=== PATIENT | male | born 1965 | race Caucasian/White ===

== ENCOUNTER 2025-01-13 14:24 | Inpatient (IN) | payer BC, SELFPAY ==
--- NOTE | ~2025-01-13 | CT_ITS ---
CLINICAL HISTORY: epigastric pain CT abdomen and pelvis with contrast Comparison: None provided Findings: LIMITED CHEST: Lung bases are clear. LIVER: No focal liver lesion. BILIARY: Cholecystectomy. PANCREAS: There is moderate inflammatory stranding along the pancreatic head. No fluid collection. Normal parenchymal enhancement. SPLEEN: No splenomegaly. KIDNEYS: No hydronephrosis or radiopaque stone. ADRENALS: No nodule. VASCULAR: No aneurysm. RETROPERITONEUM: No lymphadenopathy or mass. BOWEL/MESENTERY: No evidence of obstruction. No free fluid or air. ABDOMINAL WALL: No mass or significant abnormality. URINARY BLADDER: No focal wall thickening. PELVIC NODES: No pelvic lymphadenopathy. PELVIC ORGANS: Normal for age. BONES: No acute fracture. Degenerative changes of the spine. OTHER: Negative. IMPRESSION: Acute pancreatitis. No abscess or fluid collection. This document has been electronically signed by: Tessa Levine MD on 01/13/2025 18:49:53
--- NOTE | ~2025-01-13 | MR_ITS ---
CLINICAL HISTORY: Pancreatitis-R O CBD stone, pancreas divisum MR abdomen without contrast, MRCP Comparison: CT/SR - CT ABDOMEN PELVIS W IV CON - 01/13/25 18:00 EST Findings: No signal abnormality in the lung bases. Status post cholecystectomy. No intrahepatic or extrahepatic biliary ductal dilatation. The common bile duct measures up to 5 mm. No filling defect to indicate choledocholithiasis. The main pancreatic duct measures up to 2.6 mm. No pancreatic divisum. There are multiple subcentimeter cysts within the pancreas, the largest measures up to 5 mm. There are also multiple dilated side branches. Interval resolution of the previously seen peripancreatic stranding. No peripancreatic fluid collection. Right renal parapelvic cysts measuring 7 mm The other solid organs are unremarkable. No bowel wall thickening or dilation. No aneurysm. No lymphadenopathy. No ascites. Multilevel lumbar endplate signal abnormalities, degenerative. Low signal lesion in the T12 vertebra on the T2 weighted images which is minimally hyperintense on the fat saturated images (series 3 and 4, image 37) and does not lose signal on the out of phase images (series 9 and 10, image 44) without definitive lesion seen on the recent CT. Impression: Resolution of the previously seen acute pancreatitis. No choledocholithiasis or pancreas divisum. Multiple subcentimeter cysts and dilated side branches. One year follow up is recommended. Indeterminate lesion within T12 can be further characterized with a bone scan or dedicated MR of the spine with and without contrast. This document has been electronically signed by: Leah Watson MD on 01/15/2025 18:39:23
[2025-01-13 14:29] VITALS: BP 129/61; PULSE 77; RESP 16; TEMP 37.1; O2SAT 95; BMI 35.1
--- NOTE | 2025-01-13 14:35 | ED.ABDPAIN ---
HPI - Abdominal Pain General Chief Complaint: Abdominal Pain Stated Complaint: abd pain Time Seen by Provider: 01/13/25 16:35 History of Present Illness HPI narrative: patient is a 60-year-old male with a history of diabetes status post cholecystectomy back in 2020 presents today with having epigastric pain. Does not radiate anywhere. There is no shortness of breath associated with it. There is no diaphoresis. Denies any nausea vomiting had a bowel movement earlier today without any difficulties. No fever no chills. No coughing or congestion or upper respiratory symptoms. Patient is from home. Had a bowel movement today was hard and it was normal in color. Patient denies having any history of heart attacks. No history of hypertension hypercholesterolemia. No history of [place] in the past. From home. Related Data Allergies Allergy/AdvReac Type Severity Reaction Status Date / Time No Known Allergies Allergy Verified 01/13/25 14:31 Review of Systems Review of Systems Positive epigastric pain Yes all other systems are reviewed and are negative PMFSH Past Medical History Attestation statement: The following information was validated with the patient. Social History Social History Advance Directives: No Advance Directives Information Provided: No Do you have a plan to hurt others: No Plan Physical Exam ED Exam Exam: Appearance: Alert. Oriented X3. No acute distress. Eyes: Pupils equal, round and reactive to light. ENT: Pharynx normal. Neck: Normal inspection. Neck supple. No lymph nodes noted. No crepitus CVS: Normal heart rate and rhythm. Pulses normal. Normal S1 and S2 Respiratory: No respiratory distress. Breath sounds normal. No Wheezing. No rales Abdomen: Soft and nontender. No rigidity. No distention. good BS x4 Skin: Skin warm and dry. Normal skin color. Normal skin turgor. Extremities: No lower extremity edema. Neurovascular intact to all extremities. No Lacerations. No Rash Neuro: Oriented X 3. No motor deficit. No sensory deficit. Moving all extermities. No slurred speech Vital Signs: Vital Signs - 24 hr 01/13/25 14:29 01/13/25 16:00 01/13/25 18:00 Temperature 98.7 F Pulse Rate 77 78 88 Respiratory Rate 16 18 20 Blood Pressure 129/61 128/60 130/62 Pulse Oximetry 95 98 Oxygen Delivery Method Room Air Room Air Room Air BMI result Body Mass Index 35.1 Course Course Course Narrative: This is a Rapid Medical Examination (RME) performed by Vu Lockwood PA-C in triage. Full HPI, ROS, assessment and treatment plan per primary provider in the Main ED. Hx: 60 yo M here for eval of RUQ/ epigastric abd pain x 4 days. hx of gallstone pancreatitis had his GB removed in 2011- states this feels similar. pain is worse w/ movement and eating. no N/V/D, fevers. PE: negative gaxiola Plan: labs Medical Decision Making Medical Decision Making [facility] Narrative: Patient had epigastric pain. Lipase was slightly elevated at over 100. Patient's electrolytes mildly elevated. White count was normal. CT scan of the abdomen was positive for having pancreatitis. No pseudocyst noted. Patient's AST was 43 ALT is 83 alk-phos is 150 only mildly elevation in the LFTs. The bilirubins are normal. I consulted GI. Agree with plan of monitoring overnight in the hospital for pancreatitis question etiology. Patient denies any viral illness denies any history of drinking alcohol. Patient had a cholecystectomy done in the past. My interpretation of patient's EKG showed a sinus rhythm heart rate is 70 ID QRS QTC normal there is no acute ST segment elevation. Differential Diagnosis Differential Diagnoses: The differential diagnosis associated with the presentation includes Pancreatitis, gastritis, obstruction, abdominal aortic aneurysm, ACS Admission/Observation Consideration of admission/observation: Escalation of care including admission/observation considered Consult Healthcare Provider Management of the patient was discussed with: Hospitalist and Patron Attendant ( GI) Lab Data [facility] Lab Attestation statement: I reviewed the patient's lab results. 01/13/25 14:42 01/13/25 14:42 Labs: Lab Results 01/13/25 Range/Units 14:42 WBC 10.1 (4.8-10.8) X10*3/uL RBC 5.40 (4.60-5.80) X10*6/uL Hgb 16.3 (14.0-18.0) g/dl Hct 48.7 (42.0-52.0) % MCV 90.2 (80.0-98.0) fL MCH 30.2 (27.0-33.0) pg MCHC 33.5 (31.0-36.0) g/dl RDW 12.7 (11.0-16.0) % Plt Count 228 (160-400) X10*3/uL MPV 9.5 (9.4-12.4) fL Immature Gran % (Auto) 0.4 (0.0-0.4) % Neut % (Auto) 67.9 (45-73) % Lymph % (Auto) 17.0 L (20-40) % [place] % (Auto) 11.5 H (2-11) % Eos % (Auto) 2.1 (0-4) % Baso % (Auto) 1.1 (0-2) % Lymph # (Auto) 1.7 (1.2-4.9) X10*3/uL [place] # (Auto) 1.2 (0.1-1.2) X10*3/uL Eos # (Auto) 0.2 (0.0-0.4) X10*3/uL Baso # (Auto) 0.1 (0.0-0.2) X10*3/uL Abs Immat Gran (auto) 0.04 H (0.00-0.03) X10*3/uL Absolute Neuts (auto) 6.8 (2.0-8.3) x10*3/uL Absolute Nucleated RBC 0.000 (0.0-0.012) X10*3/uL Nucleated RBC % (auto) 0.0 (0.0-0.2) /100WBC Sodium 139 (135-145) mmol/L Potassium 4.2 (3.3-5.1) mmol/L Chloride 103 (96-108) mmol/L Carbon Dioxide 24 (22-29) mmol/L Anion Gap 16 (12-20) BUN 19 H (9-16) mg/dL Creatinine 0.88 (0.5-1.4) mg/dL Estim Creat Clear Calc 115.1 Estimated GFR > 60 Random Glucose 204 H (60-115) mg/dL Calcium 10.0 (8.4-10.2) mg/dL Magnesium 2.3 (1.6-2.6) mg/dL Total Bilirubin 0.9 (0.0-1.0) mg/dL Direct Bilirubin 0.4 (0.0-0.5) mg/dL AST 43 H (5-37) U/L ALT 84 H (0-40) U/L Alkaline Phosphatase 153 H (39-117) U/L Troponin I High Sens < 2.7 (<3.5-35.0) ng/L Total Protein 7.3 (6.5-8.0) g/dL Albumin 4.5 (3.5-5.0) g/dL Lipase 114 H (8-78) U/L Independent Interpretation I performed an independent interpretation of an: EKG ( my interpretation patient's EKG as above) and CT Scan ( my interpretation patient's CT scan showed no obvious obstruction abscess perforation. I reviewed radiology's reading which showed pancreatitis no pseudocyst) Radiology Impression Discussion of test interpretation with radiology: I have reviewed the radiologist's reading. Independent Historian Clinical information obtained from an independent historian. History obtained from or confirmed by: Spouse External Record Review External record reviewed: Inpatient record Chronic Conditions Patient?s care impacted by: Diabetes cholecystitis, diabetes Social Determinants Patient?s care significantly limited by Social Determinants of Health including: Problems related to primary support group Medications Administered Discontinued Medications Generic Name Dose Route Start Last Admin Trade Name Freq PRN Reason Stop Dose Admin Al Hydroxide/Mg Hydroxide 30 ml 01/13/25 16:55 01/13/25 17:37 Magnesium Hydrox/Alum Hydrox 30 Ml Oral.Susp PO 01/13/25 16:56 30 ml ONCE ONE Administration Iohexol 100 ml 01/13/25 18:42 01/13/25 18:42 Iohexol 350 Mg/Ml 100 Ml Infus..Btl IV 01/13/25 18:43 85 ml ONCE ONE Administration Discharge Plan Discharge Clinical Impression: Pancreatitis Patient Disposition: Admitted As Inpatient Print Language: Taiwanese
[2025-01-13 14:49] LABS: MANUAL DIFF FLAG NO
[2025-01-13 14:50] LABS: Hematocrit 48.7 % (42.0-52.0); Hemoglobin 16.3 g/dl (14.0-18.0); Imm Gran Abs Auto 0.04 X10*3/uL (0.00-0.03); Imm Gran Pct Auto 0.4 % (0.0-0.4); Lymphocytes Absolute Auto 1.7 X10*3/uL (1.2-4.9); Mean Corpuscular HGB Conc 33.5 g/dl (31.0-36.0); Mean Corpuscular Hemoglobin 30.2 pg (27.0-33.0); Mean Corpuscular Volume 90.2 fL (80.0-98.0); NRBC Abs Auto 0.000 X10*3/uL (0.0-0.012); NRBC Pct Auto 0.0 /100WBC (0.0-0.2); Platelet Count 228 X10*3/uL (160-400); Red Blood Count 5.40 X10*6/uL (4.60-5.80); White Blood Count 10.1 X10*3/uL (4.8-10.8)
[2025-01-13 15:18] LABS: Alanine Aminotransferase 84 U/L (0-40); Albumin Level 4.5 g/dL (3.5-5.0); Alkaline Phosphatase 153 U/L (39-117); Anion Gap 16 (12-20); Aspartate Amino Transferase 43 U/L (5-37); Blood Urea Nitrogen 19 mg/dL (9-16); Calcium 10.0 mg/dL (8.4-10.2); Carbon Dioxide 24 mmol/L (22-29); Chloride 103 mmol/L (96-108); Creatinine Clr Calc Pharmacy 115.1; Estimated Glomerular Filt Rate > 60; Lipase 114 U/L (8-78); Magnesium 2.3 mg/dL (1.6-2.6); Potassium 4.2 mmol/L (3.3-5.1); Sodium 139 mmol/L (135-145); Total Protein 7.3 g/dL (6.5-8.0)
[2025-01-13 16:00] VITALS: BP 128/60; PULSE 78; RESP 18; O2SAT 98
--- OUTSIDE RECORDS SUMMARY | 2025-01-13 16:52 | XMS_ITS | Clinical Summary ---
Author Organization [facility] Address [address] [facility] [address] [place] [address] Phone Care Team Providers Care Top Dyeing Machine Tender Name Role Phone Corin Medeiros NP Primary Care Provider + Allergies No known active allergies Medications amLODIPine (NORVASC) 2.5 MG tablet Take 2.5 mg by mouth daily. Active metFORMIN (GLUCOPHAGE) 500 MG tablet Take 500 mg by mouth 2 (two) times a day with meals. Active atorvastatin (LIPITOR) 40 MG tablet Take 40 mg by mouth daily. Active ascorbic acid, vitamin C, (VITAMIN C) 250 mg Chew Take 250 mg by mouth daily. Active zinc sulfate 220 mg Tab Take 220 mg by mouth daily. Active lisinopril-hydr oCHLOROthiazide (PRINZIDE,ZESTO RETIC) 20-12.5 mg per tablet TAKE 2 TABLETS BY MOUTH EVERY DAY FOR 90 DAYS 01/16/2020 Active FARXIGA 5 mg tablet Take 5 mg by mouth daily. 01/06/2020 Active cyanocobalamin, vitamin B-12, 100 MCG tablet Take 100 mcg by mouth daily. Active aspirin 325 MG EC tablet Take 1 tablet (325 mg total) by mouth daily for 14 days. 14 tablet 07/24/2021 Active Active Problems Problem Noted Date Diagnosed Date Right shoulder pain 12/19/2018 Social History Tobacco Use Types Packs/Day Years Used Date Smoking Tobacco: Never Smokeless Tobacco: Never Alcohol Use Standard Drinks/Week Comments Never 0 (1 standard drink = 0.6 oz pur e alcohol) Education Answer Date Recorded Are you interested in more education? Not on abi e 06/05/2022 Are you concerned about learning? Not on file 06/05/2022 No 06/05/2022 No 06/05/2022 Digital Access Answer Date Recorded No 07/04/2022 No 07/04/2022 No 07/04/2022 Reliable internet access at home? Not on file 07/04/2022 Device with a working camera? Not on file Sex and Gender Information Value Date Recorded Sex Assigned at Male 02/03/2019 12:16 PM EST Legal Sex Male 4:37 PM EST Gender Identity Male 02/03/2019 12:16 PM EST Sexual Orientation Straight 02/03/2019 12 :16 PM EST Last Filed Vital Signs Vital Sign Reading Time Taken Comments Blood Pressure 117/78 07/24/2021 12:45 PM EDT Pulse 79 07/24/2021 11:45 AM EDT Temperature 36.7 C (98.1 F) 07/24/2021 11:15 AM EDT Respiratory Rate 14 07/24/2021 11:45 AM EDT Oxygen Saturation 96% 07/24/2021 12:45 PM EDT Inhaled Oxygen Concentration - - Weight 120.7 kg (266 lb) 07/21/2021 3:17 PM EDT Height 175.3 cm (5' 9 ) 07/21/2021 3:17 PM EDT Body Mass Index 39.28 07/21/2021 3:17 PM EDT Plan of Treatment Health Maintenance Due Date Last Done Comments CREATININE LEVEL 1963 LIPID PANEL 1963 POTASSIUM LEVEL 1963 DEPRESSION SCREENING 1975 HEPATITIS C SCREENING 1981 HIV ONE-TIME SCREENING (18-6 5 YEARS) 1981 COLOGUARD 01/04/2008 COLONOSCOPY 01/04/2008 COLORECTAL CANCER SCREENING 01/04/2008 FIT TEST 01/04/2008 FOBT 01/04/2008 SIGMOIDOSCOPY 01/04/2008 VIRTUAL COLONOSCOPY 01/04/2008 RSV VACCINE (1 - Risk 50-74 years 1-dose series) 2013 ZOSTER VACCINES (1 of 2) 2013 PNEUMOCOCCAL VACCINES (50+ years) (2 of 2 - PCV) 01/27/2014 01/27/2013 INFLUENZA VACCINE (#1) 2024 COVID-19 VACCINE (3 - 2025-2 6 season) 2024 03/22/2021, 03/01/2021 Adult Td,Tdap Booster 06/07/2025 06/08/2015 , 07/14/2013 SMOKING STATUS SCREENING (On ce After 26 Yrs) Completed 10/15/2021 HEPATITIS A VACCINES Aged Out No long er eligible based on patient's age to complete this topic HIB VACCINES Aged Out No longer eligi ble based on patient's age to complete this topic MENINGOCOCCAL VACCINES (ACWY) Aged Out No longer eligible based on patient's age to complete this topic MENINGOCOCCAL VACCINES (B) Aged Out N o longer eligible based on patient's age to complete this topic Medical Devices Implanted Type Area Console Assembler Device Identifier Shelf Expiration Date Model / Serial / Lot Elysian Suture 4.5mm Arthroscopy Reelx Stt Peek Ss Core Knotless Shapr Tip Expandable Bx/5ea - [id number] Implanted:Qty: 1 on 02/10/2019 by Jefe Manriquez DO at [facility] Right: Shoulder [employer] 10/11/2020 [id number] / / [id number] Elysian Suture Size 2.0 Length5.5mm Arthroscopy Intraline Titanium Force Fiber - [id number] Implanted:Qty: 1 on 02/10/2019 by Jefe Manriquez DO at [facility] Right: Shoulder [employer] 03/28/2020 [id number] / / [id number] Elysian Suture Size 2.0 Length5.5mm Arthroscopy Intraline Titanium Force Fiber - [id number] Implanted:Qty: 1 on 02/10/2019 by Jefe Manriquez DO at [facility] Right: Shoulder [employer] 08/01/2020 [id number] / / [id number] Elysian Suture 4.5mm Arthroscopy Reelx Stt Peek Ss Core Knotless Shapr Tip Expandable Bx/5ea - [id number] Implanted:Qty: 1 on 02/10/2019 by Jefe Manriquez DO at [facility] Right: Shoulder [employer] 10/11/2020 [id number] / / [id number] Elysian Suture 4.5mm Arthroscopy Reelx Stt Peek Ss Core Knotless Shapr Tip Expandable Bx/5ea - [id number] Implanted:Qty: 1 on 02/10/2019 by Jefe Manriquez DO at [facility] Right: Shoulder [employer] 10/11/2020 [id number] / / [id number] Elysian Suture 4.5mm Arthroscopy Reelx Stt Peek Ss Core Knotless Shapr Tip Expandable Bx/5ea - [id number] Implanted:Qty: 2 on 07/24/2021 by Jefe Manriquez DO at [facility] Left: Shoulder [employer] 04/18/2023 [id number] / / [id number] Kit Elysian 4.75mm Suture Healicoil Regensorb Repair 3 Sutures Kt/3 - [id number] Implanted:Qty: 2 on 07/24/2021 by Jefe Manriquez DO at [facility] Left: Shoulder [employer] 10/18/2023 [id number] / / [id number] Kit Elysian 4.75mm Suture Healicoil Regensorb Repair 3 Sutures Kt/3 - [id number] Implanted:Qty: 1 on 07/24/2021 by Jefe Manriquez DO at [facility] Left: Shoulder [employer] 06/15/2023 [id number] / / [id number] Elysian Suture 4.5mm Arthroscopy Reelx Stt Peek Ss Core Knotless Shapr Tip Expandable Bx/5ea - [id number] Implanted:Qty: 2 on 07/24/2021 by Jefe Manriquez DO at [facility] Left: Shoulder [employer] 05/29/2023 [id number] / / [id number] [facility] [place] [address] [place] [address] [place] [address] [place] [address] UNITED PPO UNITED PPO UNITED PPO UNITED PPO WORKERS [place] [address] WORKERS COMPENSATION Advance Directives For more information, please contact: [phone] (9AM - 5PM Anne Marie/[facility], Wednesday-Wednesday) * Full Code (Presumed) (Latest Code Status on File) Date Activated Date Inactivated Comments 02/10/2019 9:03 AM 02/10/2019 5:45 PM Care Teams Top Dyeing Machine Tender Relationship Specialty Start Date End Date Corin Medeiros NP [address] [place] [address] PCP - General Family Medicine 06/16/21 Additional Source Comments The information contained in this document represents components of the legal health record. It is not the complete legal health record.[facility]
--- OUTSIDE RECORDS SUMMARY | 2025-01-13 16:52 | XMS_ITS | Encounter Summary ---
Author Organization [facility] Address [id number] [facility] [address] [place] [address] Phone Care Team Providers Care Forest Ecology Professor Name Role Phone Unknown, Unknown MD Primary Care Provider Alysa Willis SHIPPING AND RECEIVING WEIGHER Primary Care Provider [phone] Corin Medeiros SHIPPING AND RECEIVING WEIGHER Primary Care Provider + Reason for Referral * MRI/CAT Scan - Closed Specialty Diagnoses / Procedures Referred By Contac t Referred To Contact Procedures MRI Outside Upper Extremity (No Interpretation) System, Provider Not In, PhD Partners [employer] [address] Referral ID Status Reason Start Date Expiration Date Visits Re quested Visits Authorized [id number] Closed 12/21/2018 12/21/2019 1 1 Encounter Details Date Type Department Care Team (Late st Contact Info) Description 12/21/2018 Ancillary Orders [facility],Outside Imaging [address] [place] [address] System, Provider Not In, PhD Partners [employer] [address] [place] [address] Social History Tobacco Use Types Packs/Day Years Used Date Smoking Tobacco: Never Smokeless Tobacco: Never Alcohol Use Standard Drinks/Week Comments Not Currently 0 (1 standard drink = 0.6 oz pur e alcohol) Sex and Gender Information Value Date Recorded Sex Assigned at Male 02/03/2019 12:16 PM EST Legal Sex Male 4:37 PM EST Gender Identity Male 02/03/2019 12:16 PM EST Sexual Orientation Straight 02/03/2019 12 :16 PM EST documented as of this encounter Plan of Treatment Not on file documented as of this encounter Results * MRI Outside Upper Extremity (No Interpretation) (12/04/2018 12:00 AM EDT) Narrative SYSTEMGENERATED, DOCUMENTATION - 12/21/2018 12:06 PM EST This study is for PACS storage only and not for interpretation. us Provider Not In System PhD IMG OUTSIDE IMAGING W /OUT INTERPRETATION Final Result * XR Upper Extremity Outside (No Interpretation) (11/12/2018 12:00 AM EDT) Narrative SYSTEMGENERATED, DOCUMENTATION - 12/21/2018 12:07 PM EST This study is for PACS storage only and not for interpretation. us Provider Not In System PhD IMG OUTSIDE IMAGING W /OUT INTERPRETATION Final Result documented in this encounter Visit Diagnoses Not on filedocumented in this encounter Care Teams Forest Ecology Professor Relationship Specialty Start Date End Date Unknown, Unknown, PCP - General 12/14/18 02/20/19 Alysa Antonoi NP [address] [place] [address] PCP - General 02/21/19 06/15/21 Corin Medeiros NP [address] [place] [address] PCP - General Family Medicine 06/16/21 documented as of this encounter Additional Source Comments The information contained in this document represents components of the legal health record. It is not the complete legal health record.[facility]
--- OUTSIDE RECORDS SUMMARY | 2025-01-13 16:52 | XMS_ITS | Clinical Summary ---
Author Organization [facility] Address [address] [place] [address] Care Team Providers Care Merchandise Manager Name Role Phone Unavailable Primary Care Provider Unavailabl e Social History Tobacco Use Types Packs/Day Years Used Date Smoking Tobacco: Never Assessed Sex and Gender Information Value Date Recorded Sex Assigned at Not on file Legal Sex Male 10:11 PM EDT Gender Identity Not on file Sexual Orientation Not on file Plan of Treatment Health Maintenance Due Date Last Done Comments Hepatitis C Screening 1963 DTaP/Tdap/Td (1 - Tdap) 1981 Pneumococcal 50+ years (1 of 1 - PCV) 2013 Zoster (Shingrix) (1 of 2) 2013 COVID-19 Vaccine (1 - 2024-2 6 season) 2024 Influenza (#1) 2024 RSV (1 - 1-dose 75+ series) 2038 HPV Vaccine (No Doses Required) Completed Hep A Aged Out No longer eligi ble based on patient's age to complete this topic Hep B Aged Out No longer eligi ble based on patient's age to complete this topic Hib Aged Out No longer eligi ble based on patient's age to complete this topic Meningococcal ACWY Aged Out No longer eligible based on patient's age to complete this topic Zoster (Zostavax) Discontinued
--- OUTSIDE RECORDS SUMMARY | 2025-01-13 16:52 | XMS_ITS | Encounter Summary ---
Author Organization [facility] Address [address] [facility] [address] [place] [address] Phone Care Team Providers Care Mold Setter Name Role Phone Corin Medeiros STAINED GLASS PAINTER Primary Care Provider + Encounter Details Date Type Department Care Team (Late st Contact Info) Description 07/24/2021 Procedure Pass OR Admitting Dept - Virtual Department [address] [place] [address] Social History Tobacco Use Types Packs/Day Years [...] on file documented as of this encounter Visit Diagnoses Not on filedocumented in this encounter Care Teams Mold Setter Relationship Specialty Start Date End Date Corin Medeiros NP [address] [place] [address] PCP - General Family Medicine 06/16/21 documented as of this encounter Additional Source Comments The information contained in this document represents components of the legal health record. It is not the complete legal health record.[facility]
--- OUTSIDE RECORDS SUMMARY | 2025-01-13 16:52 | XMS_ITS | Encounter Summary ---
Author Organization [facility] Address [address] [facility] [address] [place] [address] Phone Care Team Providers Care Welder Production Line Gas Name Role Phone Corin Medeiros NP Primary Care Provider + Encounter Details Date Type Department Care Team (Late st Contact Info) Description 07/11/2021 Ancillary Orders [facility],Outside Imaging [address] [place] [address] System, Provider Not In, PhD Partners [address] [address] Social History Tobacco Use Types Packs/Day Years [...] * MRI Outside Upper Extremity (No Interpretation) (06/11/2021 12:00 AM EDT) Narrative SYSTEMGENERATED, DOCUMENTATION - 07/11/2021 10:13 AM EDT This study is for PACS storage only and not for interpretation. us Provider Not In System PhD IMG OUTSIDE IMAGING W /OUT INTERPRETATION Final Result documented in this encounter Visit Diagnoses Not on filedocumented in this encounter Care Teams Welder Production Line Gas Relationship Specialty Start Date End Date Corin Medeiros NP [address] [place] [address] PCP - General Family Medicine 06/16/21 documented as of this encounter Additional Source Comments The information contained in this document represents components of the legal health record. It is not the complete legal health record.[facility]
--- OUTSIDE RECORDS SUMMARY | 2025-01-13 16:52 | XMS_ITS | Encounter Summary ---
Author Organization [facility] Address [address] [facility] [address] [place] [address] Phone Care Team Providers Care Flat Folding Machine Operator Name Role Phone Corin Medeiros NP Primary Care Provider + Encounter Details Date Type Department Care Team (Late st Contact Info) Description 07/11/2021 Ancillary Orders [facility],Outside Imaging [address] [place] [address] System, Provider Not In, PhD Partners [address] [address] Social History Tobacco Use Types Packs/Day Years [...] documented as of this encounter Results * XR Upper Extremity Outside (No Interpretation) (05/31/2021 12:00 AM EDT) Narrative SYSTEMGENERATED, DOCUMENTATION - 07/11/2021 10:14 AM EDT This study is for PACS storage only and not for interpretation. us Provider Not In System PhD IMG OUTSIDE IMAGING W /OUT INTERPRETATION Final Result documented in this encounter Visit Diagnoses Not on filedocumented in this encounter Care Teams Flat Folding Machine Operator Relationship Specialty Start Date End Date Corin Medeiros NP [address] [place] [address] PCP - General Family Medicine 06/16/21 documented as of this encounter Additional Source Comments The information contained in this document represents components of the legal health record. It is not the complete legal health record.[facility]
--- OUTSIDE RECORDS SUMMARY | 2025-01-13 16:52 | XMS_ITS | Encounter Summary ---
Author Organization [facility] Address [address] [place] [address] Phone Care Team Providers Care Histology Technologist Name Role Phone Unknown, Unknown Primary Care Provider Alysa Willis CHILDREN'S COUNSELOR Primary Care Provider [phone] Corin Medeiros CHILDREN'S COUNSELOR Primary Care Provider + Encounter Details Date Type Department Care Team (Late st Contact Info) Description 02/10/2019 Procedure Pass OR Admitting Dept - Virtual Department [address] [place] [address] Social History Tobacco Use Types Packs/Day Years [...] on filedocumented in this encounter Care Teams Histology Technologist Relationship Specialty Start Date End Date Unknown, Unknown, PCP - General 12/14/18 02/20/19 Alysa Antonio NP [address] [place] [address] PCP - General 02/21/19 06/15/21 Corin Medeiros NP [address] [place] [id number] PCP - General Family Medicine 06/16/21 documented as of this encounter Additional Source Comments The information contained in this document represents components of the legal health record. It is not the complete legal health record.[facility]
--- OUTSIDE RECORDS SUMMARY | 2025-01-13 16:52 | XMS_ITS | Encounter Summary ---
Author Organization [facility] Address [address] [place] [id number] Phone Care Team Providers Care Dieing Out Machine Operator Name Role Phone Unknown, Unknown Primary Care Provider Alysa Willis [employer] Primary Care Provider [phone] Corin Medeiros [employer] Primary Care Provider + Encounter Details Date Type Department Care Team (Late st Contact Info) Description 12/21/2018 Procedure [facility],Outside Imaging [address], [place] [id number] Social History Tobacco Use Types Packs/Day Years [...] on filedocumented in this encounter Care Teams Dieing Out Machine Operator Relationship Specialty Start Date End Date Unknown, Unknown, PCP - General 12/14/18 02/20/19 Alysa Antonio NP [address] [place] [address] PCP - General 02/21/19 06/15/21 Corin Mederios NP [address]ja [address] [place] [id number] PCP - General Family Medicine 06/16/21 documented as of this encounter Additional Source Comments The information contained in this document represents components of the legal health record. It is not the complete legal health record.[facility]
--- NOTE | 2025-01-13 16:53 | ECG_ITS ---
Test Reason : epigastric pain dm Blood Pressure : */* mmHG Vent. Rate : 70 BPM Atrial Rate : 70 BPM P-R Int : 196 ms QRS Dur : 94 ms QT Int : 408 ms P-R-T Axes : 4 -39 -13 degrees QTcB Int : 440 ms Normal sinus rhythm Left axis deviation Possible Anterior infarct , age undetermined Abnormal ECG No previous ECGs available Referred By: Rossy Joe Electronically Signed By: LAISHA VIRK
[2025-01-13 17:25] LABS: Troponin-I High Sensitivity < 2.7 ng/L (<3.5-35.0)
[2025-01-13] MEDS: Magnesium Hydrox/Alum Hydrox 30 ML ORAL.SUSP PO (17:37)
[2025-01-13 18:00] VITALS: BP 130/62; PULSE 88; RESP 20
[2025-01-13] MEDS: iohexoL 350 MG/ML 100 ML INFUS..BTL IV (18:42)
--- NOTE | 2025-01-13 20:07 | PM.IMHP ---
History of Present Illness Date of Service: 01/13/25 Chief Complaint: epigastric pain 60-year-old male with a past medical history of hypertension, diabetes, history of gallstone pancreatitis status post cholecystectomy; presented to the hospital today with a chief complaint of epigastric pain. Patient reports that over the past couple days he has been having epigastric pain associated with nausea. Denies any fevers and chills. Denies any diarrhea. Denies any alcohol use. Denies being on GLP 1 analogs. Review of all other systems is negative except mentioned above ER course: Per ER team, patient notes epigastric tenderness; CT scan showed findings consistent with pancreatitis. [facility] Social History Household Members: Spouse Housing: House Do you presently have visiting nurse or other home services: No Patient Tobacco Use Status: Never used Tobacco Currently Displaying Signs/Symptoms of Drug Intoxication Withdrawal: No Have you been hit, kicked, punched, or otherwise hurt by someone within the past year? If so, by whom?: No Do you feel safe in your current relationship?: Yes Is there a partner from a previous relationship who is making you feel unsafe now?: No Are you made to feel afraid or neglected: No Advance Directives: No Advance Directives Information Provided: No Do you have a plan to hurt others: No Plan Recently lost weight without trying: No Eating poorly because of decreased appetite: No Nutrition Risks: Poor intake 0-25% >4 days Poor oral hygiene: No service: No Meds Allergies Allergy/AdvReac Type Severity Reaction Status Date / Time No Known Allergies Allergy Verified 01/13/25 14:31 Home Medications ?Medication ?Instructions ?Recorded ?Confirmed ?Last Taken ?Type amlodipine 2.5 mg tablet 2.5 mg PO DAILY 01/14/25 01/14/25 01/12/25 History ascorbic acid (vitamin C) 125 mg 125 mg PO DAILY 01/14/25 01/14/25 01/12/25 History chewable tablet (Vitamin C) atorvastatin 40 mg tablet 40 mg PO BEDTIME 01/14/25 01/14/25 01/12/25 History dapagliflozin propanediol 10 mg 10 mg PO DAILY 01/14/25 01/14/25 01/12/25 History tablet (Farxiga) diclofenac sodium 75 mg 75 mg PO BID 01/14/25 01/14/25 01/12/25 History tablet,delayed release glipizide 5 mg tablet 5 mg PO BEDTIME 01/14/25 01/14/25 01/12/25 History lisinopril 20 1 tab PO BID 01/14/25 01/14/25 01/12/25 History mg-hydrochlorothiazide 12.5 mg tablet mecobalamin (vitamin B12) 1,000 1,000 mcg PO DAILY 01/14/25 01/14/25 01/12/25 History mcg chewable tablet (B12 Active) metformin 1,000 mg tablet 1,000 mg PO BID 01/14/25 01/14/25 01/12/25 History vitamin E acetate 134 mg (200 134 mg PO DAILY 01/14/25 01/14/25 01/12/25 History unit) capsule Physical Exam Vital Signs and Narrative: Vital Signs: Last Vital Signs Temp 98.7 F 01/13/25 14:29 Pulse 88 01/13/25 18:00 Resp 20 01/13/25 18:00 BP 130/62 01/13/25 18:00 Pulse Ox 98 01/13/25 16:00 O2 Del Method Room Air 01/13/25 18:00 BMI result Body Mass Index 35.1 Results Labs 01/14/25 05:41 01/14/25 05:41 Labs: Laboratory Results - last 24 hr 01/13/25 14:42 MCV 90.2 MCH 30.2 MCHC 33.5 RDW 12.7 Plt Count 228 MPV 9.5 Immature Gran % (Auto) 0.4 Neut % (Auto) 67.9 Lymph % (Auto) 17.0 L [place] % (Auto) 11.5 H Eos % (Auto) 2.1 Baso % (Auto) 1.1 Lymph # (Auto) 1.7 [place] # (Auto) 1.2 Eos # (Auto) 0.2 Baso # (Auto) 0.1 Abs Immat Gran (auto) 0.04 H Absolute Neuts (auto) 6.8 Absolute Nucleated RBC 0.000 Nucleated RBC % (auto) 0.0 Anion Gap 16 Estim Creat Clear Calc 115.1 Estimated GFR > 60 Random Glucose 204 H Calcium 10.0 Magnesium 2.3 Total Bilirubin 0.9 Direct Bilirubin 0.4 AST 43 H ALT 84 H Alkaline Phosphatase 153 H Troponin I High Sens < 2.7 Total Protein 7.3 Albumin 4.5 Lipase 114 H Assessment and Plan (1) Pancreatitis: Status: Acute Plan 60-year-old male with a past medical history of hypertension, diabetes, history of gallstone pancreatitis status post cholecystectomy; presented to the hospital today with a chief complaint of epigastric pain. Admitted for following Pancreatitis: Patient has prior history of gallstone pancreatitis status post cholecystectomy Patient denies alcohol use. Pain control GI consult Will defer to GI in records further imaging. Advanced diet as tolerated IV fluids DVT prophylaxis: Lovenox Code status: Full code Quality Stroke Does the patient have a stroke diagnosis?: No VTE Prior VTE?: No VTE Risk Level:: Medical - moderate - high VTE Device Contraindication: Treatment Not Indicated VTE Drug Contraindication: N/A - Med Ordered
[2025-01-13 20:24] VITALS: BP 126/76; PULSE 71; RESP 18; TEMP 36.9; O2SAT 94
[2025-01-13] MEDS: Dextrose 5 % and 0.45 % NaCl 1,000 ML 100 ML IVCONT (20:52)
[2025-01-13 22:45] VITALS: BP 104/67; PULSE 75; RESP 18; TEMP 36.8; O2SAT 94
[2025-01-14] VITALS (7 sets, daily range): BP systolic 110–139; BP diastolic 66–83; PULSE 63–72; RESP 14–18; TEMP 36.5–36.8; O2SAT 95–100; BMI 33.8
--- NOTE | 2025-01-14 02:16 | PC.NURSE ---
Pt resting, no signs of distress. Pt breathing even and unlabored. Plan of care ongoing.
[2025-01-14 05:55] LABS: MANUAL DIFF FLAG NO
[2025-01-14 05:57] LABS: Hematocrit 44.1 % (42.0-52.0); Hemoglobin 14.9 g/dl (14.0-18.0); Imm Gran Abs Auto 0.03 X10*3/uL (0.00-0.03); Imm Gran Pct Auto 0.3 % (0.0-0.4); Lymphocytes Absolute Auto 1.6 X10*3/uL (1.2-4.9); Mean Corpuscular HGB Conc 33.8 g/dl (31.0-36.0); Mean Corpuscular Hemoglobin 30.3 pg (27.0-33.0); Mean Corpuscular Volume 89.8 fL (80.0-98.0); NRBC Abs Auto 0.000 X10*3/uL (0.0-0.012); NRBC Pct Auto 0.0 /100WBC (0.0-0.2); Platelet Count 206 X10*3/uL (160-400); Red Blood Count 4.91 X10*6/uL (4.60-5.80); White Blood Count 8.6 X10*3/uL (4.8-10.8)
--- NOTE | 2025-01-14 06:12 | PC.NURSE ---
Nurse to nurse Pt is an a&ox4, 60 yo male w/ a hx of DM, HTN, gallstone pancreatitis status post cholecystectomy. Pt ambulates independently, has a 20g IV in the left forearm running D5/NS0.45 @ 100mls/hr.
[2025-01-14 06:15] LABS: Alanine Aminotransferase 93 U/L (0-40); Albumin Level 3.9 g/dL (3.5-5.0); Alkaline Phosphatase 141 U/L (39-117); Anion Gap 12 (12-20); Aspartate Amino Transferase 42 U/L (5-37); Blood Urea Nitrogen 16 mg/dL (9-16); Calcium 9.0 mg/dL (8.4-10.2); Carbon Dioxide 26 mmol/L (22-29); Chloride 103 mmol/L (96-108); Creatinine Clr Calc Pharmacy 140.7; Estimated Glomerular Filt Rate > 60; Potassium 4.2 mmol/L (3.3-5.1); Sodium 137 mmol/L (135-145); Total Protein 6.5 g/dL (6.5-8.0)
[2025-01-14] MEDS: Dextrose 5 % and 0.45 % NaCl 1,000 ML 100 ML IVCONT (06:24)
[2025-01-14 06:46] LABS: Glucose, Whole Blood 185 mg/dL (60-115)
--- NOTE | 2025-01-14 07:32 | PC.NURSE ---
Pt is jovial, joking. no sign of distress. no nausea. able to eat some clear liquids awaits bed upstairs. abd soft, non tender. no distention. moist mm
--- NOTE | 2025-01-14 08:50 | PHA.MEDREC ---
Addendum entered by Claudia Kerr RPh 01/14/25 09:30: Per [facility] L[facility], patient states they decreased lisinopril/hctz to 1 tablet bid. Reviewed by pharmacist Original Note: Pharmacy Consult ? Medication Reconciliation Pharmacy has completed the medication reconciliation. Confirmed medication list with patient and against pharmacy claims. Patient claims they last took both their morning and night doses on Wednesday.
[2025-01-14 11:19] LABS: Glucose, Whole Blood 220 mg/dL (60-115)
[2025-01-14 11:50] LABS: Cholesterol 117 mg/dL (<200); HDL Cholesterol 31 mg/dL (>40); Triglycerides 96 mg/dL (<150)
--- NOTE | 2025-01-14 15:51 | HO.PM.IMPN ---
Subjective Subjective Date of Service: 01/14/25 Interval History: Seen and evaluated during morning rounds Currently pain well-controlled No significant nausea or vomiting Previous episode of pancreatitis 12 years ago when he underwent cholecystectomy Review of Systems Review of Systems: Yes all other systems are reviewed and are negative Physical Exam Exam: Exam: General: AOx3, no acute distress Resp: CTA bilaterally CVS: S1, S2, RRR GI: +BS, NT, no distention Skin: Warm, dry Neuro: Cranial nerves II-XII grossly intact bilaterally. Motor grossly intact bilaterally Extremities: No edema Psych: Appropriate affect Vital Signs: Vital Signs: Last Vital Signs Temp 98.2 F 01/14/25 15:50 Pulse 63 01/14/25 15:50 Resp 16 01/14/25 15:50 BP 130/83 01/14/25 15:50 Pulse Ox 95 01/14/25 15:50 O2 Del Method Room Air 01/14/25 15:50 BMI result Body Mass Index 33.8 Objective Data Active Medications Acetaminophen (Acetaminophen 325 Mg Tablet) 650 mg PO Q6H PRN PRN Reason: Pain, Mild 1-3,fever,headache Albuterol/Ipratropium (Albuterol/Iprat 2.5/0.5mg 3 Ml Ampul.Neb) 3 ml INHALE Q4H PRN PRN Reason: Shortness of Breath/Wheezing Amlodipine Besylate (Amlodipine Besylate 2.5 Mg Tablet) 2.5 mg PO DAILY [facility]; Protocol Ascorbic Acid (Ascorbic Acid 250 Mg Tablet) 125 mg PO DAILY [facility] Atorvastatin Calcium (Atorvastatin Calcium 40 Mg Tablet) 40 mg PO BEDTIME [facility] Benzonatate (Benzonatate 100 Mg Capsule) 100 mg PO TID PRN PRN Reason: Cough Calcium Carbonate (Calcium Carbonate 750 Mg Tab.Chew) 750 mg PO Q4H PRN PRN Reason: Heartburn Dextrose (Dextrose 50 % 25 Gm/50 Ml Syringe) 25 gm IVPUSH Q15M PRN; Protocol PRN Reason: per Hypoglycemia Standing Ord. Diclofenac Sodium (Diclofenac Sodium Delayed Rel 75 Mg Tablet.Dr) 75 mg PO BID [facility] Docusate Sodium (Docusate Sodium 100 Mg Capsule) 100 mg PO BID [facility] Last Admin: 01/14/25 09:31 Dose: Not Given Documented By: RAUL Non-Admin Reason: Patient Refused Enoxaparin Sodium (Enoxaparin Sodium 40 Mg/0.4 Ml Syringe) 40 mg SUBCUT Q24H [facility] Last Admin: 01/13/25 20:51 Dose: 40 mg Documented By: ANKIT Glucose (Glucose Gel 15 Gm Gel..Gram.) 15 gm PO Q15M PRN; Protocol PRN Reason: per Hypoglycemia Standing Ord. Hydromorphone HCl (Hydromorphone Hcl 1 Mg/Ml Syringe) 0.5 mg IVPUSH Q4H PRN; Protocol PRN Reason: Breakthrough Pain Insulin Human Lispro (Insulin Lispro 100 Unit/Ml 3 Ml Vial) 0 unit SUBCUT QIDACHS [facility]; Protocol Last Admin: 01/14/25 12:23 Dose: 4 unit Documented By: BEBETO Magnesium Hydroxide (Milk Of Magnesia 30 Ml Oral.Susp) 30 ml PO DAILY PRN PRN Reason: Constipation Melatonin (Melatonin 3 Mg Tablet) 6 mg PO BEDTIME PRN PRN Reason: Insomnia Polyethylene Glycol (Polyethylene Glycol 3350 17 Gm Powd.Pack) 17 gm PO DAILY PRN PRN Reason: Constipation Senna (Sennosides 8.6 Mg Tablet) 17.2 mg PO BEDTIME [facility] Last Admin: 01/13/25 20:51 Dose: 17.2 mg Documented By: ANKIT Sodium Chloride (0.9 % Sodium Chloride Flush 3 Ml Syringe) 3 ml IVFLUSH QSHIFT [facility] Last Admin: 01/14/25 07:28 Dose: Not Given Documented By: RAUL Non-Admin Reason: IV Running Labs 01/14/25 05:41 01/14/25 05:41 Labs: Laboratory Results - last 24 hr 01/13/25 01/14/25 01/14/25 14:42 05:41 06:42 MCV 89.8 MCH 30.3 MCHC 33.8 RDW 12.6 Plt Count 206 MPV 10.0 Immature Gran % (Auto) 0.3 Neut % (Auto) 64.8 Lymph % (Auto) 19.1 L [place] % (Auto) 11.9 H Eos % (Auto) 2.7 Baso % (Auto) 1.2 Lymph # (Auto) 1.6 [place] # (Auto) 1.0 Eos # (Auto) 0.2 Baso # (Auto) 0.1 Abs Immat Gran (auto) 0.03 Absolute Neuts (auto) 5.6 Absolute Nucleated RBC 0.000 Nucleated RBC % (auto) 0.0 Anion Gap 12 Estim Creat Clear Calc 140.7 Estimated GFR > 60 POC Glucose 185 H Random Glucose 193 H Calcium 9.0 D Total Bilirubin 0.6 AST 42 H ALT 93 H Alkaline Phosphatase 141 H Troponin I High Sens < 2.7 Total Protein 6.5 Albumin 3.9 Triglycerides 96 Cholesterol 117 LDL Cholesterol, Calc 67 HDL Cholesterol 31 L 01/14/25 11:06 MCV MCH MCHC RDW Plt Count MPV Immature Gran % (Auto) Neut % (Auto) Lymph % (Auto) [place] % (Auto) Eos % (Auto) Baso % (Auto) Lymph # (Auto) [place] # (Auto) Eos # (Auto) Baso # (Auto) Abs Immat Gran (auto) Absolute Neuts (auto) Absolute Nucleated RBC Nucleated RBC % (auto) Anion Gap Estim Creat Clear Calc Estimated GFR POC Glucose 220 H Random Glucose Calcium Total Bilirubin AST ALT Alkaline Phosphatase Troponin I High Sens Total Protein Albumin Triglycerides Cholesterol LDL Cholesterol, Calc HDL Cholesterol Assessment and Plan (1) Pancreatitis: Status: Acute Plan 60-year-old male with a past medical history of hypertension, diabetes, history of gallstone pancreatitis status post cholecystectomy; presented to the hospital today with a chief complaint of epigastric pain. Admitted for the following Acute pancreatitis Patient has prior history of gallstone pancreatitis status post cholecystectomy 15 years ago Patient denies alcohol use; triglycerides WNL Pain control, IVF GI consult; will defer to GI in records further imaging. Currently feeling better, diet as tolerated Trend LFTs, lipase HTN Continue amlodipine, hydrochlorothiazide, lisinopril HLD Hold statin for now Wox-hskmrxd-pzhpkfbku type 2 diabetes Hold Farxiga and metformin Hold glipizide while on reduced p.o. intake Sliding scale insulin, diabetic diet DVT prophylaxis: Lovenox Code status: Full code Pt will require continued hospitalization for treatment with IVF, analgesics, and close monitoring of pancreatitis. Pt has not yet back to baseline or tolerating a full diet. Quality Stroke Does the patient have a stroke diagnosis?: No VTE Prior VTE?: No VTE Risk Level:: Medical - moderate - high VTE Device Contraindication: Treatment Not Indicated VTE Drug Contraindication: N/A - Med Ordered
--- NOTE | 2025-01-14 16:46 | MHC.CM.PN ---
PT REPORTS HE LIVES WITH HIS , WHO WAS AT BEDSIDE HE IS INDEPENDENT WITH CARE, HAS NO DME AND NO SERVICES COPY OF HCP REQUESTED, HE STATES HIS IS HIS AGENT PCP: REBECCA JEAN BAPTISTE DCP: HOME VIA PRIVATE TRANSPORT
[2025-01-14 16:58] LABS: Glucose, Whole Blood 141 mg/dL (60-115)
[2025-01-14] MEDS: 0.9 % Sodium Chloride Flush 3 ML SYRINGE IVFLUSH ×2 (17:03→21:35)
--- NOTE | 2025-01-14 17:47 | PM.EVENT ---
Event Note Date of Service: 01/14/25 Event Note: GI Consult-Full note dictated-History from patient, his , and EMR Imp: Resolving acute pancreatitis that reminds him of his previous issue with gallstones and abdominal pain > 10 years ago that resulted in a CCY. He was told of a passed stone but did not have an ERCP as best as he can recall. He presently appears well with a benign abdomen. There is no obvious etiology of his pancreatitis at the present time---no history of EtOH, new or suspicious meds, family history of pancreatitis or pancreatic neoplasm, and he has normal TG's and Calcium levels. Rec: MRCP, check IgG subtypes re: [place] pancreatitis, supportive care, F/U labs in AM, and advance diet as tolerated. D/W patient and his in detail. thanks. Time Spent With Patient Time: Total time managing care of this patient today ____ minutes.
[2025-01-14 20:32] LABS: Glucose, Whole Blood 144 mg/dL (60-115)
[2025-01-14] MEDS: Diclofenac Sodium Delayed Rel 75 MG TABLET.DR PO (21:34)
--- NOTE | 2025-01-14 23:06 | CONS_ITS ---
DATE OF SERVICE: 01/14/2025 REASON FOR CONSULTATION: Abdominal pain and pancreatitis. HISTORY OF PRESENT ILLNESS: History has been obtained from the patient, his , and the medical record. The patient is a 60-year-old male who was in his usual state of health up until about 3 days before admission when he began having episodes of epigastric pain that progressed. This was reminiscent of his cholecystitis and possible pancreatitis that he had over 10 years ago, that resulted in a cholecystectomy in [place]. He does not recall having had an ERCP, but remembers that the doctor told him that he had passed the stone. He had not had any problems since the surgery up until just several days ago. He did not notice any recent jaundice, fevers, vomiting, nor diarrhea. He did not notice any urinary symptoms, melena, nor hematochezia. The pain was localized mainly to the upper abdomen. Since admission here, he does think his pain has improved and he has been tolerating a full liquid diet. He thinks he is feeling somewhat better. The patient denies any use of alcohol to a significant amount either presently nor in the past. He denies any known family history of pancreatitis or pancreatic cancer. He has not been using any new or suspicious medication in regard to any etiology of pancreatitis. He had normal triglyceride levels and calcium levels on admission. His lipase was just minimally elevated on admission at 114. He had slight elevation of the liver enzymes, but normal bilirubin. He has been afebrile here in the hospital. MEDICATIONS: At home, include amlodipine, atorvastatin, Farxiga, diclofenac, glipizide, lisinopril with hydrochlorothiazide, metformin. His medications here include amlodipine, acetaminophen, albuterol inhaler p.r.n., vitamin C, atorvastatin, Tessalon p.r.n. cough, Tums p.r.n. heartburn, diclofenac, Colace, Lovenox, Dilaudid p.r.n., insulin sliding scale, melatonin p.r.n., milk of magnesia p.r.n., MiraLAX p.r.n., and Senokot p.r.n. PAST MEDICAL HISTORY: Cholecystectomy, spermatocele surgery, and shoulder surgery. Diabetes mellitus. Hyperlipidemia. Arthritis. He denies any history of HI, stroke, lung disease, or kidney disease. 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 He is . He does not smoke or use any significant amounts of alcohol. FAMILY HISTORY: Noncontributory. REVIEW OF SYSTEMS: CONSTITUTIONAL: Up until admission, he had been feeling well with good energy and good appetite. SKIN: No rash. No pruritus. CARDIAC: No chest pain. PULMONARY: No coughing. No hemoptysis. GI: As above. URINARY: No dysuria. No hematuria. NEUROLOGIC: No headache or seizures. PHYSICAL EXAMINATION: GENERAL: The patient is a pleasant, alert, comfortable-appearing male. He has been afebrile. SKIN: Warm and dry. HEENT: Anicteric sclerae. Moist mucous membranes. NECK: Supple. CHEST: Clear. CARDIAC: Normal S1, S2. ABDOMEN: Soft, nondistended, nontender without organomegaly or mass. EXTREMITIES: Without edema. LABORATORY DATA: As above. CT scan described a normal-appearing liver. There was some moderate inflammatory stranding along the pancreatic head, but no fluid collection. There is no splenomegaly. There is no intraabdominal fluid collection to suggest an abscess. There is no description of biliary dilatation or choledocholithiasis. White blood cell count 8.6, hemoglobin 14.9, platelets 206,000. AST 43, ALT 84, alkaline phosphatase 153, total bilirubin 0.9. Lipase 114. Triglycerides 96, calcium level 9.0. LFTs today are basically unchanged. IMPRESSION: The patient is a 60-year-old male, presenting with what appears to be a fairly mild and fairly rapidly resolving episode of pancreatitis. The etiology of that is not clear at this time. He does not describe any suspicious medications that would cause this, although he is on lisinopril with hydrochlorothiazide that could potentially contribute to pancreatitis, although that is not a new medication for him. He denies any family history of pancreatic disease and does not use any significant amounts of alcohol. There does not appear to be any metabolic issues such as hypertriglyceridemia or hypercalcemia. At this point, I will continue supportive care and observe him. Followup laboratories have been ordered for the morning. I will have ordered an MRCP to rule out a common duct stone as a contributing factor, given his previous history and the unclear etiology of the pancreatitis. I would continue his diet as tolerated and then advance that as tolerated as well. I would also check IgG subtypes to rule out any component of autoimmune pancreatitis. If the workup is negative, I would then observe him and discharge him once he is able to tolerate a diet. If the workup is negative and he does well going forward, then I do not think any further workup would be needed. However, if he continues to have episodes of pancreatitis, he could then require an endoscopic ultrasound of the pancreas. This has all been discussed with the patient and his . They are both comfortable with the plan. Thank you for the consultation. MD PARTH Gibbs/VINH / [id number]
--- NOTE | 2025-01-15 02:58 | PC.NURSE ---
Pt's platelet level is 117, with a downward trend noted. OIL WELL CABLE TOOL OPERATOR Laurence Nathan notified via [place] text. Per OIL WELL CABLE TOOL OPERATOR, hold scheduled 0300 heparin.
[2025-01-15 03:15] VITALS: BP 128/65; PULSE 65; RESP 18; TEMP 35.9; O2SAT 95
[2025-01-15 03:27] VITALS: TEMP 36.6
[2025-01-15 06:56] LABS: Hematocrit 44.5 % (42.0-52.0); Hemoglobin 15.1 g/dl (14.0-18.0); Mean Corpuscular HGB Conc 33.9 g/dl (31.0-36.0); Mean Corpuscular Hemoglobin 30.3 pg (27.0-33.0); Mean Corpuscular Volume 89.4 fL (80.0-98.0); NRBC Abs Auto 0.000 X10*3/uL (0.0-0.012); NRBC Pct Auto 0.0 /100WBC (0.0-0.2); Platelet Count 211 X10*3/uL (160-400); Red Blood Count 4.98 X10*6/uL (4.60-5.80); White Blood Count 6.4 X10*3/uL (4.8-10.8)
[2025-01-15 07:07] LABS: Alanine Aminotransferase 97 U/L (0-40); Albumin Level 3.9 g/dL (3.5-5.0); Alkaline Phosphatase 142 U/L (39-117); Anion Gap 12 (12-20); Aspartate Amino Transferase 40 U/L (5-37); Blood Urea Nitrogen 14 mg/dL (9-16); Calcium 9.2 mg/dL (8.4-10.2); Carbon Dioxide 27 mmol/L (22-29); Chloride 103 mmol/L (96-108); Creatinine Clr Calc Pharmacy 115.5; Estimated Glomerular Filt Rate > 60; Lipase 42 U/L (8-78); Potassium 4.3 mmol/L (3.3-5.1); Sodium 138 mmol/L (135-145); Total Protein 6.3 g/dL (6.5-8.0)
--- NOTE | 2025-01-15 07:15 | P.PNIM_ITS ---
Subjective Subjective Date of Service: 01/15/25 Interval History: Patient to undergo MRCP today Benign abdomen LFTs plateauing Spoke to the patient and the at the bedside again this afternoon Answered all questions If the patient has no acute findings on MRCP, can challenge with diet and likely we will be discharged tomorrow pending read of MRCP Review of Systems Review of Systems: Yes all other systems are reviewed and are negative Physical Exam 2 Exam: Exam: General: AOx3, no acute distress Resp: CTA bilaterally CVS: S1, S2, RRR GI: +BS, NT, no distention Psych: Frustrated and angry Vital Signs: Vital Signs: Last Vital Signs Temp 97.9 F 01/15/25 03:27 Pulse 65 01/15/25 03:15 Resp 18 01/15/25 03:15 BP 128/65 01/15/25 03:15 Pulse Ox 95 01/15/25 03:15 O2 Del Method Room Air 01/15/25 03:15 BMI result Body Mass Index 33.8 Objective Data Active Medications Acetaminophen (Acetaminophen 325 Mg Tablet) 650 mg PO Q6H PRN PRN Reason: Pain, Mild 1-3,fever,headache Albuterol/Ipratropium (Albuterol/Iprat 2.5/0.5mg 3 Ml Ampul.Neb) 3 ml INHALE Q4H PRN PRN Reason: Shortness of Breath/Wheezing Amlodipine Besylate (Amlodipine Besylate 2.5 Mg Tablet) 2.5 mg PO DAILY [facility]; Protocol Ascorbic Acid (Ascorbic Acid 250 Mg Tablet) 125 mg PO DAILY [facility] Atorvastatin Calcium (Atorvastatin Calcium 40 Mg Tablet) 40 mg PO BEDTIME [facility] Last Admin: 01/14/25 21:34 Dose: 40 mg Documented By: SEBASTIEN Benzonatate (Benzonatate 100 Mg Capsule) 100 mg PO TID PRN PRN Reason: Cough Calcium Carbonate (Calcium Carbonate 750 Mg Tab.Chew) 750 mg PO Q4H PRN PRN Reason: Heartburn Dextrose (Dextrose 50 % 25 Gm/50 Ml Syringe) 25 gm IVPUSH Q15M PRN; Protocol PRN Reason: per Hypoglycemia Standing Ord. Diclofenac Sodium (Diclofenac Sodium Delayed Rel 75 Mg Tablet.) 75 mg PO BID [facility] Last Admin: 01/14/25 21:34 Dose: 75 mg Documented By: SEBASTIEN Docusate Sodium (Docusate Sodium 100 Mg Capsule) 100 mg PO BID [facility] Last Admin: 01/14/25 21:36 Dose: Not Given Documented By: SEBASTIEN Non-Admin Reason: multiple loose stools Enoxaparin Sodium (Enoxaparin Sodium 40 Mg/0.4 Ml Syringe) 40 mg SUBCUT Q24H [facility] Last Admin: 01/14/25 21:39 Dose: 40 mg Documented By: SEBASTIEN Glucose (Glucose Gel 15 Gm Gel..Gram.) 15 gm PO Q15M PRN; Protocol PRN Reason: per Hypoglycemia Standing Ord. Hydromorphone HCl (Hydromorphone Hcl 1 Mg/Ml Syringe) 0.5 mg IVPUSH Q4H PRN; Protocol PRN Reason: Breakthrough Pain Insulin Human Lispro (Insulin Lispro 100 Unit/Ml 3 Ml Vial) 0 unit SUBCUT QIDACHS [facility]; Protocol Last Admin: 01/14/25 21:43 Dose: Not Given Documented By: SEBASTIEN Non-Admin Reason: No Insulin Coverage Magnesium Hydroxide (Milk Of Magnesia 30 Ml Oral.Susp) 30 ml PO DAILY PRN PRN Reason: Constipation Melatonin (Melatonin 3 Mg Tablet) 6 mg PO BEDTIME PRN PRN Reason: Insomnia Last Admin: 01/14/25 21:34 Dose: 6 mg Documented By: SEBASTIEN Polyethylene Glycol (Polyethylene Glycol 3350 17 Gm Powd.Pack) 17 gm PO DAILY PRN PRN Reason: Constipation Senna (Sennosides 8.6 Mg Tablet) 17.2 mg PO BEDTIME [facility] Last Admin: 01/14/25 21:37 Dose: Not Given Documented By: SEBASTIEN Non-Admin Reason: multiple loose stools Sodium Chloride (0.9 % Sodium Chloride Flush 3 Ml Syringe) 3 ml IVFLUSH QSHIFT [facility] Last Admin: 01/14/25 21:35 Dose: 3 ml Documented By: SEBASTIEN Labs 01/15/25 06:09 01/15/25 06:09 Labs: Laboratory Results - last 24 hr 01/14/25 01/14/25 01/14/25 05:41 11:06 16:53 MCV MCH MCHC RDW Plt Count MPV Absolute Nucleated RBC Nucleated RBC % (auto) Anion Gap Estim Creat Clear Calc Estimated GFR POC Glucose 220 H 141 H Random Glucose Calcium Total Bilirubin AST ALT Alkaline Phosphatase Total Protein Albumin Triglycerides 96 Cholesterol 117 LDL Cholesterol, Calc 67 HDL Cholesterol 31 L Lipase 01/14/25 01/15/25 20:26 06:09 MCV 89.4 MCH 30.3 MCHC 33.9 RDW 12.4 Plt Count 211 MPV 9.5 Absolute Nucleated RBC 0.000 Nucleated RBC % (auto) 0.0 Anion Gap 12 Estim Creat Clear Calc 115.5 Estimated GFR > 60 POC Glucose 144 H Random Glucose 172 H Calcium 9.2 Total Bilirubin 0.6 AST 40 H ALT 97 H Alkaline Phosphatase 142 H Total Protein 6.3 L Albumin 3.9 Triglycerides Cholesterol LDL Cholesterol, Calc HDL Cholesterol Lipase 42 Assessment and Plan (1) Pancreatitis: Status: Acute Plan 60-year-old male with a past medical history of hypertension, diabetes, history of gallstone pancreatitis status post cholecystectomy; presented to the hospital today with a chief complaint of epigastric pain. Admitted for the following #Acute pancreatitis #History of cholecystectomy more than a decade ago Unclear etiology Patient has prior history of gallstone pancreatitis status post cholecystectomy 15 years ago Patient to undergo MRCP this a.m. If no acute changes, can challenged with solid diet and based on tolerance can be discharged tomorrow #HTN Continue amlodipine, hydrochlorothiazide, lisinopril #HLD Hold statin for now #[id number]-bhurzryuw type 2 diabetes Sliding scale insulin, diabetic diet (resume diet after MRCP ) DVT prophylaxis: Lovenox Code status: Full code Reason for hospitalization MRCP, need to challenged with solid diet. Will likely be discharged tomorrow. Quality Stroke Does the patient have a stroke diagnosis?: No VTE Prior VTE?: No VTE Risk Level:: Medical - moderate - high VTE Device Contraindication: Treatment Not Indicated VTE Drug Contraindication: N/A - Med Ordered
[2025-01-15 07:23] LABS: Glucose, Whole Blood 156 mg/dL (60-115)
[2025-01-15 07:35] VITALS: BP 142/79; PULSE 60; RESP 18; TEMP 36.1; O2SAT 94
[2025-01-15] MEDS: Diclofenac Sodium Delayed Rel 75 MG TABLET.DR PO ×2 (08:11→20:25)
[2025-01-15] MEDS: 0.9 % Sodium Chloride Flush 3 ML SYRINGE IVFLUSH ×3 (08:13→20:32)
[2025-01-15 11:21] LABS: Glucose, Whole Blood 207 mg/dL (60-115)
[2025-01-15 15:18] VITALS: BP 120/67; PULSE 62; RESP 18; TEMP 36.1; O2SAT 95
[2025-01-15 16:10] LABS: Glucose, Whole Blood 162 mg/dL (60-115)
--- NOTE | 2025-01-15 19:07 | P.EN_ITS ---
Event Note Date of Service: 01/15/25 Event Note: GI--Patient presently feeling well-- at the bedside. No complaints, but just hungry--no pain, lipase normalized, abdomen is benign. MRI with MRCP is negative for CBD stones or primary pancreatic ductal pathology that would account for his pancreatitis. I would advance his diet, discharge in AM if stable, and I can F/U as an outpatient. He should have a repeat MRI of the pancreas in 1-2 years due to the presence of the small cysts, which I think are incidental and not causing symptoms since his pancreatic duct is normal. If pancreatitis recurs he would need an Endoscopic U/S of the pancreas, as well as consideration of reviewing his meds in regard to potential causes of pancreatitis including the Lisinopril- Hctz. Thanks Time Spent With Patient Time: Total time managing care of this patient today ____ minutes.
[2025-01-15 19:30] LABS: Glucose, Whole Blood 154 mg/dL (60-115)
[2025-01-15 19:31] VITALS: BP 146/75; PULSE 64; RESP 18; TEMP 36.4; O2SAT 94
[2025-01-16 04:00] VITALS: BP 126/75; PULSE 60; RESP 18; TEMP 36.4; O2SAT 96
[2025-01-16 06:31] LABS: MANUAL DIFF FLAG NO
[2025-01-16 06:39] LABS: Hematocrit 44.4 % (42.0-52.0); Hemoglobin 15.0 g/dl (14.0-18.0); Imm Gran Abs Auto 0.03 X10*3/uL (0.00-0.03); Imm Gran Pct Auto 0.4 % (0.0-0.4); Lymphocytes Absolute Auto 1.8 X10*3/uL (1.2-4.9); Mean Corpuscular HGB Conc 33.8 g/dl (31.0-36.0); Mean Corpuscular Hemoglobin 30.1 pg (27.0-33.0); Mean Corpuscular Volume 89.2 fL (80.0-98.0); NRBC Abs Auto 0.000 X10*3/uL (0.0-0.012); NRBC Pct Auto 0.0 /100WBC (0.0-0.2); Platelet Count 220 X10*3/uL (160-400); Red Blood Count 4.98 X10*6/uL (4.60-5.80); White Blood Count 6.8 X10*3/uL (4.8-10.8)
[2025-01-16 07:04] LABS: Alanine Aminotransferase 101 U/L (0-40); Albumin Level 3.8 g/dL (3.5-5.0); Alkaline Phosphatase 145 U/L (39-117); Anion Gap 11 (12-20); Aspartate Amino Transferase 41 U/L (5-37); Blood Urea Nitrogen 16 mg/dL (9-16); Calcium 8.9 mg/dL (8.4-10.2); Carbon Dioxide 28 mmol/L (22-29); Chloride 105 mmol/L (96-108); Creatinine Clr Calc Pharmacy 118.3; Estimated Glomerular Filt Rate > 60; Lipase 34 U/L (8-78); Magnesium 2.1 mg/dL (1.6-2.6); Potassium 4.2 mmol/L (3.3-5.1); Sodium 140 mmol/L (135-145); Total Protein 6.3 g/dL (6.5-8.0)
[2025-01-16 07:15] LABS: HBS Num1 0.00 mIU/mL (0-7.99); HBc Num1 0.09 S/CO (0.00-0.79); HBsAGNum1 0.43 S/CO (0.00-0.99); Hepatitis B Surface Antigen Negative (Negative); ~HepC Num1 0.11 S/CO (0.00-0.79); ~Hepatitis B Surface Antibody NONREACTIVE (Nonreactive); ~Hepatitis C Antibody Nonreactive (Nonreactive)
[2025-01-16 07:19] LABS: Glucose, Whole Blood 189 mg/dL (60-115)
[2025-01-16 07:24] VITALS: BP 142/72; PULSE 61; RESP 16; TEMP 36.4; O2SAT 94
--- NOTE | 2025-01-16 07:33 | P.DS_ITS ---
DS: Providers Provider Date of Service: 01/16/25 Date of admission: 01/13/25 20:05 Date of discharge: 01/16/25 Primary care physician: Corin Medeiros NP Consults: 01/13/25 23:40 Consult to Gastroenterology Routine Consulting Provider: Steven Zuniga Reason for consultation: Recurrent pancreatitis DS: Diagnosis Discharge Diagnosis (1) Pancreatitis: Status: Acute DS: Summary Hospital Course Hospital Course: Chief Complaint: epigastric pain 60-year-old male with a past medical history of hypertension, diabetes, history of gallstone pancreatitis status post cholecystectomy; presented to the hospital today with a chief complaint of epigastric pain. Patient reports that over the past couple days he has been having epigastric pain associated with nausea. Denies any fevers and chills. Denies any diarrhea. Denies any alcohol use. Denies being on GLP 1 analogs. Review of all other systems is negative except mentioned above ER course: Per ER team, patient notes epigastric tenderness; CT scan showed findings consistent with pancreatitis. Hospital course: 60-year-old male with a past medical history of hypertension, diabetes, history of gallstone pancreatitis status post cholecystectomy; presented to the hospital today with a chief complaint of epigastric pain. Admitted for the following #Acute pancreatitis #History of cholecystectomy more than a decade ago Unclear etiology Patient has prior history of gallstone pancreatitis status post cholecystectomy [address] Zuniga GI: MRI with MRCP is negative for CBD stones or primary pancreatic ductal pathology that would account for his pancreatitis. I would advance his diet, discharge in AM if stable, and I can F/U as an outpatient. He should have a repeat MRI of the pancreas in 1-2 years due to the presence of the small cysts, which I think are incidental and not causing symptoms since his pancreatic duct is normal. If pancreatitis recurs he would need an Endoscopic U/S of the pancreas, as well as consideration of reviewing his meds in regard to potential causes of pancreatitis including the Lisinopril-Hctz. Hepatitis B panel was unremarkable Patient was given a solid diet and was able to tolerate overnight with resolution of symptoms #HTN Continue amlodipine, hydrochlorothiazide, lisinopril #HLD Hold statin for now #Ctv-[id number] type 2 diabetes Sliding scale insulin, diabetic diet (resume diet after MRCP ) DVT prophylaxis: Lovenox Code status: Full code This note is constructed using voice recognition software. While every effort has been made to ensure accuracy, rn lactation consultant errors may have been included. Time spent discussing smoking cessation with patient: more than 10 minutes Status at Discharge Functional status at discharge: independent ambulation Overall status at discharge: patient is back to baseline Time Attestation Discharge Coordination Time (in mins): 56 Quality: Safe Use of Opioids Does Pt have an Active Cancer Diagnosis on the Problem List?: No Quality: Stroke Does the patient have a stroke diagnosis?: No Physical Exam Exam: Exam: General: AOx3, no acute distress Resp: CTA bilaterally CVS: S1, S2, RRR GI: +BS, NT, no distention Psych: Frustrated and angry Vital Signs: Vital Signs: Last Vital Signs Temp 97.5 F 01/16/25 07:24 Pulse 61 01/16/25 07:24 Resp 16 01/16/25 07:24 BP 142/72 H 01/16/25 07:24 Pulse Ox 94 01/16/25 07:24 O2 Del Method Room Air 01/16/25 07:24 BMI result Body Mass Index 33.8 DS: Data Data Completed and Pending Labs on day of discharge: Laboratory Results - last 24 hr 01/15/25 01/15/25 01/15/25 11:17 16:07 19:14 WBC RBC Hgb Hct MCV MCH MCHC RDW Plt Count MPV Immature Gran % (Auto) Neut % (Auto) Lymph % (Auto) Cuming % (Auto) Eos % (Auto) Baso % (Auto) Lymph # (Auto) Cuming # (Auto) Eos # (Auto) Baso # (Auto) Abs Immat Gran (auto) Absolute Neuts (auto) Absolute Nucleated RBC Nucleated RBC % (auto) Sodium Potassium Chloride Carbon Dioxide Anion Gap BUN Creatinine Estim Creat Clear Calc Estimated GFR POC Glucose 207 H 162 H 154 H Random Glucose Calcium Magnesium Total Bilirubin Direct Bilirubin AST ALT Alkaline Phosphatase Total Protein Albumin Lipase Hep Bs Antigen Hep Bs Antibody Hep B Core Total Ab Hepatitis C Ab (EIA) 01/16/25 01/16/25 05:54 07:13 WBC 6.8 RBC 4.98 Hgb 15.0 Hct 44.4 MCV 89.2 MCH 30.1 MCHC 33.8 RDW 12.3 Plt Count 220 MPV 9.2 L Immature Gran % (Auto) 0.4 Neut % (Auto) 58.4 Lymph % (Auto) 26.1 Cuming % (Auto) 11.6 H Eos % (Auto) 2.3 Baso % (Auto) 1.2 Lymph # (Auto) 1.8 Cuming # (Auto) 0.8 Eos # (Auto) 0.2 Baso # (Auto) 0.1 Abs Immat Gran (auto) 0.03 Absolute Neuts (auto) 4.0 Absolute Nucleated RBC 0.000 Nucleated RBC % (auto) 0.0 Sodium 140 Potassium 4.2 Chloride 105 Carbon Dioxide 28 Anion Gap 11 L BUN 16 Creatinine 0.84 Estim Creat Clear Calc 118.3 Estimated GFR > 60 POC Glucose 189 H Random Glucose 152 H Calcium 8.9 Magnesium 2.1 Total Bilirubin 0.5 Direct Bilirubin 0.2 AST 41 H ALT 101 H Alkaline Phosphatase 145 H Total Protein 6.3 L Albumin 3.8 Lipase 34 Hep Bs Antigen Negative Hep Bs Antibody NONREACTIVE Hep B Core Total Ab Nonreactive Hepatitis C Ab (EIA) Nonreactive Discharge Plan Discharge Anticipated Discharge Date/Time: 01/15/25 09:56 Patient Disposition: Home, Self-Care Discharge Diagnosis: pancreatitis , acute, unclear etiology Referrals: Corin Medeiros NP [Primary Care Provider, Medical] - 1 Week Steven Zuniga MD [Physician, Gastroenterology] - 1 Week Discharge Medications: Continued atorvastatin 40 mg tablet 40 mg PO BEDTIME lisinopril-hydrochlorothiazide 20-12.5 mg tablet 1 tab PO BID amlodipine 2.5 mg tablet 2.5 mg PO DAILY metformin 1,000 mg tablet 1,000 mg PO BID diclofenac sodium 75 mg tablet,delayed release (DR/EC) 75 mg PO BID glipizide 5 mg tablet 5 mg PO BEDTIME dapagliflozin propanediol [Farxiga] 10 mg tablet 10 mg PO DAILY ascorbic acid (vitamin C) [Vitamin C] 125 mg Tablet,Chewable 125 mg PO DAILY vitamin E acetate 134 mg (200 unit) Capsule 134 mg PO DAILY mecobalamin (vitamin B12) [B12 Active] 1,000 mcg Tablet,Chewable 1,000 mcg PO DAILY Discharge Orders: Discharge Order (Routine); Ordered 01/16/25 Ordered By: Gaby Dolan Diet: Low fat, low cholesterol Activity on Discharge: As tolerated Stand Alone Forms: Patient Portal Discharge page Print Language: Cuban Care Plan Goals: Diagnosis: You have been diagnosed with acute pancreatitis, which is inflammation of the pancreas. The exact cause of your episode is not clear at this time. Medications: Take all prescribed medications as directed (e.g., pain relievers, antiemetics, pancreatic enzymes if prescribed). Avoid non-steroidal anti-inflammatory drugs (NSAIDs) and other medications that may irritate the pancreas unless specifically approved. Diet: Start with a low-fat, bland diet as tolerated. Gradually advance your diet as your symptoms improve. Avoid alcohol completely. Avoid fatty, fried, or spicy foods. Eat small, frequent meals rather than large meals. Activity: Rest as needed, but gradually increase your activity as you feel better. Avoid strenuous activity until you have fully recovered. Follow-Up: Schedule a follow-up appointment with your primary care provider or bulk station operator within 1?2 weeks. Outpatient workup may be needed to determine the cause (e.g., repeat labs, abdominal ultrasound, MRCP, or other imaging). If you have gallstones, high triglycerides, or other risk factors, further evaluation will be arranged. When to Seek Immediate Medical Attention: Severe or worsening abdominal pain Persistent vomiting or inability to keep fluids down Fever or chills Yellowing of the skin or eyes (jaundice) Shortness of breath, chest pain, or confusion Other Instructions: Do not drink alcohol. Avoid smoking. Keep a list of all your medications and bring it to all appointments. If you develop new symptoms or have concerns, contact your healthcare provider. Health Concerns: See above Plan of Treatment: See above Assessment: See above
[2025-01-16] MEDS: Diclofenac Sodium Delayed Rel 75 MG TABLET.DR PO (07:41)
[2025-01-16] MEDS: 0.9 % Sodium Chloride Flush 3 ML SYRINGE IVFLUSH (07:43)
[2025-01-16 08:00] VITALS: BP 134/68; PULSE 66; RESP 16; TEMP 36.2; O2SAT 98
--- NOTE | 2025-01-16 09:35 | MHC.CM.PN ---
DP: PT HAS BEEN MEDICALLY CLEARED FOR DC HOME, NO SERVICES. PT HAS OWN RIDE HOME.
[2025-01-20 17:39] LABS: Immunoglobulin G Subclass 1 253 mg/dL (382-929); Immunoglobulin G Subclass 2 370 mg/dL (241-700); Immunoglobulin G Subclass 3 64 mg/dL (22-178); Immunoglobulin G Subclass 4 35.0 mg/dL (4-86); Immunoglobulin G Total 672 mg/dL (600-1540)
== END 2025-01-16 08:38 | disposition home or self-care (01) | DRG 282 ==
LOC: HO.ED 20:07 → HO.EDOVER 20:27 → HO.IMC 01-14 07:17 → HO.S3 01-14 10:01
PROVIDERS: Internal Medicine; Physician Assistant Medical; Student in an Organized Health Care Education/Training Program; Admitting Provider Hospitalist; Emergency Provider Emergency Medicine Emergency Medical Services; PCP Nurse Practitioner Family; Visit Provider Student in an Organized Health Care Education/Training Program
DX: K85.90 Acute pancreatitis without necrosis or infection, unspecified (principal); Z79.84 Long term (current) use of oral hypoglycemic drugs; Z79.899 Other long term (current) drug therapy
CPT/HCPCS: 36415; 74177; 74181; 80048; 80053; 80061; 80076; 82784; 82947; 83690; 83735; 84484; 85025; 85027; 86704; 86706; 86803; 87340; 93005; 99285; J1650; Q9967

== ENCOUNTER → 2025-01-13 16:53 | Outpatient (BNV) | payer BC, SELFPAY | PROVIDERS: Emergency Provider Emergency Medicine Emergency Medical Services; PCP Nurse Practitioner Family; Visit Provider Student in an Organized Health Care Education/Training Program | DX: K85.90 Acute pancreatitis without necrosis or infection, unspecified (principal) | CPT/HCPCS: 74177 ==

== ENCOUNTER → 2025-01-13 16:53 | Outpatient (BNV) | payer BC, SELFPAY | PROVIDERS: Admitting Provider Hospitalist; Emergency Provider Emergency Medicine Emergency Medical Services; PCP Nurse Practitioner Family; Visit Provider Internal Medicine | DX: R10.13 Epigastric pain (principal) | CPT/HCPCS: 93010 ==

== ENCOUNTER 2025-01-13 20:05 | Outpatient (BNV) | payer BC, SELFPAY | END 2025-01-15 07:00 | PROVIDERS: Admitting Provider Hospitalist; Emergency Provider Emergency Medicine Emergency Medical Services; PCP Nurse Practitioner Family; Visit Provider Radiology Diagnostic Radiology | DX: K86.2 Cyst of pancreas (principal) | CPT/HCPCS: 74181 ==

== ENCOUNTER → 2025-01-13 20:05 | Outpatient (BNV) | payer BC, SELFPAY | PROVIDERS: Admitting Provider Hospitalist; Emergency Provider Emergency Medicine Emergency Medical Services; PCP Nurse Practitioner Family; Visit Provider Student in an Organized Health Care Education/Training Program | DX: K85.90 Acute pancreatitis without necrosis or infection, unspecified (principal) | CPT/HCPCS: 99233 ==